=== PATIENT | female | born 1945 | race Caucasian/White ===

== ENCOUNTER 2016-09-17 14:30 | Emergency (ER) | payer OTHER ==
[~2016-09-17 14:30] MED LIST: ALL180 PO; ASPEC81 PO; ATEN-173 PO; CALC500C70 PO; CLX20 PO; HYDC25 PO; KLNUNK PO; LRTUNK; MODA1TAB PO; MULT-506 PO; SIMV10TA2 PO
[2016-09-17 14:38] VITALS: TEMP 36.7
[2016-09-17] MEDS ORDERED: HYDR25TA4 PO (14:54)
[2016-09-17] MEDS ORDERED: FEXO1TAB49 PO (14:54)
[2016-09-17] MEDS ORDERED: ASPI81TA28 PO (14:54)
[2016-09-17] MEDS ORDERED: CITA20TA9 PO (14:54)
[2016-09-17] MEDS ORDERED: CLON0.5T3 PO (14:54)
[2016-09-17] MEDS ORDERED: OPTIRAY 320 IV PRN (15:45)
[2016-09-17 16:28] LABS: BASO % 0.3 %; BASO ABS # 0.02 K/uL (0-0.2); COMPLETE YES; EOS % 2.4 %; HEMATOCRIT 41.1 % (37-47); IG% 0.1 %; LYMPH % 37.2 %; MEAN CELL VOLUME 81.7 fL (80-100); MEAN CORPUSCULAR HEMOGLOBIN 26.8 pg (25-34); MEAN CORPUSCULAR HGB CONC 32.8 g/dl (32-36); MEAN PLATELET VOLUME 8.7 fL (7.4-10.4); MONO % 10.1 %; NEUT % 49.9 %; PLATELET COUNT 194 K/uL (130-400); RED BLOOD COUNT 5.03 M/uL (4.2-5.4); WHITE BLOOD COUNT 6.72 K/uL (4.8-10.8)
[2016-09-17 16:45] LABS: BLOOD UREA NITROGEN 12 mg/dl (7-18); BUN/CREATININE RATIO 20.8 (10-20); CALCIUM 9.8 mg/dl (8.5-10.1); CARBON DIOXIDE 32 mmol/L (21-32); CHLORIDE 101 mmol/L (98-107); CREATININE 0.59 mg/dl (0.60-1.20); GLUCOSE 88 mg/dl (70-99); POTASSIUM 4.2 mmol/L (3.5-5.1); SODIUM 138 mmol/L (136-145)
--- NOTE | 2016-09-17 17:37 | DIAGNOSTIC IMAGING REPORT ---
ORBITS/SELLA/TEMP CT WITH INTRAVENOUS CONTRAST HISTORY: left periorbital edema TECHNIQUE: Multiaxial CT images of the orbits were performed reformatted in the coronal plane following the use of intravenous contrast. COMPARISON STUDY: None. FINDINGS: Mild preseptal soft tissue swelling within the left orbit. No masses or fluid collections. The globes and retrobulbar fat are intact. The extraocular muscles and optic nerves are normal in course and caliber. The visualized brain parenchyma is unremarkable. No fractures within the visualized osseous structures. The paranasal sinuses and mastoid air cells are clear. IMPRESSION: Mild preseptal soft tissue swelling within the left orbit. No masses or abscess. Electronically signed by: Bowen Vallejo M.D. 09/17/2016 5:35 PM Dictated Date/Time: 09/17/2016 5:32 PM
[2016-09-17] MEDS ORDERED: CLINDAMYCIN 150MG HOME PACK PO ONE (17:45)
[2016-09-17] MEDS ORDERED: CLIN300C2 PO (17:46)
--- NOTE | 2016-09-17 17:46 | EMERGENCY ROOM VISIT NOTE ---
History First contact with patient: 15:02 Chief Complaint: EYE ASSESSMENT Stated Complaint: L EYE JUAN DAVID History of Present Illness The patient is a 71 year old female who presents to the Emergency Room with complaints of left eye swelling 3 days. The patient states that she first developed some itching and slight swelling in the left eye 3 days ago. She saw her florist designer and states that they did a full exam and this was normal. She was placed on erythromycin ointment and has been using this and applying Benadryl without relief. She states the swelling increased today. She states the eye is still itchy but is not significantly painful. She denies any difficulty with vision. She reports a history of cataracts but no other significant history. Review of Systems A complete 10 point review of systems was reviewed with the patient with pertinent positives and negatives as per history of present illness. All else were negative. Social History Smoking Status: Never Smoker Current/Historical Medications Scheduled Aspirin (Aspirin Ec), 81 MG PO DAILY Atenolol (Tenormin), 25 MG PO QAM Calcium/Vitamin D (Os-Rajinder 500 Plus D), 1 TAB PO BID Citalopram Hydrobromide (Celexa), 20 MG PO DAILY Clindamycin Hcl (Cleocin), 300 MG PO TID Clonazepam (Klonopin), Unknown Dose PO HS Fexofenadine Hcl (Tala Allergy), 1 TAB PO DAILY Hydrochlorothiazide (Hctz), 25 MG PO DAILY Modafinil (Provigil), 200 MG PO DAILY Multivitamin (Multivitamin), 1 TAB PO DAILY Simvastatin (Zocor), 10 MG PO QPM Allergies Coded Allergies: BEE STING (Verified Allergy, Severe, ANAPHALAXIS, 10/24/10) Adhesives (Verified Allergy, Unknown, 0, 10/24/10) Penicillins (Unverified Allergy, Unknown, HIVES, 05/16/10) Codeine (Unverified Adverse Reaction, Unknown, FAINTING, 05/30/10) Physical Exam Vital Signs Date Time Temp Pulse Resp B/P Pulse Ox O2 Delivery O2 Flow Rate FiO2 09/17/16 17:58 68 20 151/80 97 09/17/16 14:38 36.7 68 20 136/76 96 Room Air Right Eye Acuity: 20/200 Left Eye Acuity: 20/50 Physical Exam VITALS: Vitals are noted on the nurse's note and reviewed by myself. Vital signs stable. GENERAL: This is a 71-year-old female, in no acute distress, nondiaphoretic, well-developed well-nourished. SKIN: There is edema and erythema surrounding the left eye. EARS: External auditory canals clear, tympanic membranes pearly lafleur without erythema or effusion bilaterally. EYES: Pupils equal round and reactive to light and accommodation. Conjunctivae without injection, sclerae without icterus. Extraocular movements intact. No uptake of fluorescein stain on UV light examination. HEART: Regular rate and rhythm without murmurs gallops or rubs. LUNGS: Clear to auscultation bilaterally without wheezes, rales or rhonchi. . NEURO: Patient was alert and oriented to person place and time. Medical Decision & Procedures ER Provider Diagnostic Interpretation: ORBITS/SELLA/TEMP CT WITH INTRAVENOUS CONTRAST HISTORY: left periorbital edema TECHNIQUE: Multiaxial CT images of the orbits were performed reformatted in the coronal plane following the use of intravenous contrast. COMPARISON STUDY: None. FINDINGS: Mild preseptal soft tissue swelling within the left orbit. No masses or fluid collections. The globes and retrobulbar fat are intact. The extraocular muscles and optic nerves are normal in course and caliber. The visualized brain parenchyma is unremarkable. No fractures within the visualized osseous structures. The paranasal sinuses and mastoid air cells are clear. IMPRESSION: Mild preseptal soft tissue swelling within the left orbit. No masses or abscess. Laboratory Results 09/17/16 16:20 Red Blood Count 5.03, Mean Corpuscular Volume 81.7, Mean Corpuscular Hemoglobin 26.8, Mean Corpuscular Hemoglobin Concent 32.8, Mean Platelet Volume 8.7, Neutrophils (%) (Auto) 49.9, Lymphocytes (%) (Auto) 37.2, Monocytes (%) (Auto) 10.1, Eosinophils (%) (Auto) 2.4, Basophils (%) (Auto) 0.3, Neutrophils # (Auto ) 3.35, Lymphocytes # (Auto) 2.50, Monocytes # (Auto) 0.68, Eosinophils # (Auto ) 0.16, Basophils # (Auto) 0.02 09/17/16 16:20 Test 09/17/16 16:20 White Blood Count 6.72 K/uL (4.8-10.8) Red Blood Count 5.03 M/uL (4.2-5.4) Hemoglobin 13.5 g/dL (12.0-16.0) Hematocrit 41.1 % (37-47) Mean Corpuscular Volume 81.7 fL (80-100) Mean Corpuscular Hemoglobin 26.8 pg (25-34) Mean Corpuscular Hemoglobin Concent 32.8 g/dl (32-36) Platelet Count 194 K/uL (130-400) Mean Platelet Volume 8.7 fL (7.4-10.4) Neutrophils (%) (Auto) 49.9 % Lymphocytes (%) (Auto) 37.2 % Monocytes (%) (Auto) 10.1 % Eosinophils (%) (Auto) 2.4 % Basophils (%) (Auto) 0.3 % Neutrophils # (Auto) 3.35 K/uL (1.4-6.5) Lymphocytes # (Auto) 2.50 K/uL (1.2-3.4) Monocytes # (Auto) 0.68 K/uL (0.11-0.59) Eosinophils # (Auto) 0.16 K/uL (0-0.5) Basophils # (Auto) 0.02 K/uL (0-0.2) RDW Standard Deviation 43.0 fL (36.4-46.3) RDW Coefficient of Variation 14.4 % (11.5-14.5) Immature Granulocyte % (Auto) 0.1 % Immature Granulocyte # (Auto) 0.01 K/uL (0.00-0.02) Anion Gap 5.0 mmol/L (3-11) Estimated GFR () 106.1 Estimated GFR (Non- 91.6 BUN/Creatinine Ratio 20.8 (10-20) Calcium Level 9.8 mg/dl (8.5-10.1) Medications Administered Medications (Trade) Dose Ordered Sig/Ramos Route Start Time Stop Time Status Last Admin Dose Admin Clindamycin HCl (Cleocin 150MG Home Pack) 1 homepack UD ONCE PO 09/17/16 17:45 09/17/16 17:46 DC 09/17/16 17:45 1 HOMEPACK Medical Decision Differential diagnosis includes allergic reaction, preseptal cellulitis, orbital cellulitis, herpes zoster, among others. The patient was evaluated as above. CT scan of the orbits was performed and did show preseptal swelling with no evidence of orbital involvement. Slit-lamp examination showed no uptake of fluorescein. The patient will be covered with clindamycin for a preseptal cellulitis. She was instructed to continue follow- up with her florist designer. She will return here for any worsening symptoms. She verbalized understanding of my assessment and treatment plan and was discharged home in good condition. The patient was independently evaluated by Dr. Gould, ED attending physician, who agreed with my assessment and treatment plan. Impression Primary Impression: Preseptal cellulitis of left eye Departure Information Dispostion Home / Self-Care Condition GOOD Prescriptions Clindamycin Hcl (CLEOCIN) 300 Mg Cap 300 MG PO TID for 10 Days, #30 CAP Prov: Tennille Chen ., HELEN 09/17/16 Referrals Zakia Galvez DO (PCP) Patient Instructions My [facility] Additional Instructions You were prescribed clindamycin to be taken as prescribed. This is an antibiotic. All antibiotics have the potential to cause diarrhea. Stop this medication and contact a medical provider if you were to develop any significant adverse side effects including: wheezing, shortness of breath, passing out, vomiting, or a diffuse rash. Always take antibiotics as directed and COMPLETE the ENTIRE course regardless of the improvement of your symptoms. You may want to take a probiotic with this medication as well. You can find these [id number]. Keep your follow-up appointment with the florist designer as scheduled. Return to the emergency room with worsening swelling, vision changes or any other new/concerning symptoms.
--- NOTE | 2016-09-17 17:52 | EMERGENCY ROOM VISIT NOTE ---
ED Visit Note First contact with patient: 15:02 The patient was seen and examined with Tennille Chen PA-C. I agree with the history, physical and findings. Please see the note for disposition and details.
[2016-09-17 17:58] VITALS: BP 151/80; PULSE 68; O2SAT 97
== END 2016-09-17 18:00 | disposition home or self-care (01) ==
LOC: C.EDB 14:32 → C.EDD 18:00
DX: L03.213 Periorbital cellulitis (principal); Z79.82 Long term (current) use of aspirin

== ENCOUNTER 2022-04-26 11:25 | Inpatient (IN) ==
[2022-04-26 14:24] LABS: Basophils # (auto) 0.01 K/uL (0-0.2); Basophils % (auto) 0.1 %; Eosinophils # (auto) 0.04 K/uL (0-0.50); Eosinophils % (auto) 0.6 %; Hematocrit (blood only) 39.6 % (34.1-44.9); Hemoglobin 13.6 g/dl (12.0-16.0); Immature Granulocytes # (auto) 0.02 K/uL (0.00-0.02); Immature Granulocytes % (auto) 0.3 %; Lymphocytes # (auto) 2.86 K/uL (1.2-3.4); Lymphocytes % (auto) 41.3 %; Mean Corpuscular Hemoglobin 26.6 pg (25.0-34.0); Mean Corpuscular Hgb Conc 34.3 g/dL (32.0-36.0); Mean Corpuscular Volume 77.3 fL (80.0-100.0); Mean Platelet Volume 8.6 fL (9.4-12.3); Monocytes # (auto) 0.93 K/uL (0.24-0.82); Monocytes % (auto) 13.4 %; Neutrophils # (auto) 3.06 K/uL (1.4-6.5); Neutrophils % (auto) 44.3 %; Platelet Count 248 K/uL (130-400); RDW Coefficient of Variation 13.5 % (11.5-14.5); RDW Standard Deviation 38.1 fL (36.4-46.3); Red Blood Count 5.12 M/uL (3.93-5.22); White Blood Count 6.92 K/ul (4.8-10.8)
[2022-04-26] MEDS ORDERED: SODIUM CHLORIDE 0.9% 1000ML 1,000 ML IV ONE (14:56)
[2022-04-26] MEDS ORDERED: ONDANSETRON INJ 2 MG/ML 2 ML VIAL IV STA (14:56)
[2022-04-26 14:59] LABS: Albumin Globulin Ratio 1.6 (0.9-2); Albumin Level 4.3 gm/dl (3.4-5.0); BUN Creatinine Ratio 18.3 (10-20); Bilirubin,Total 0.9 mg/dl (0.2-1.0); Creatinine Clr Calc Pharmacy 65.6 ml/min; Est GFR (African American) 94.6 ml/min; Est GFR (Non-African American) 81.6 ml/min; Globulin 2.7 gm/dl (2.5-4.0); Potassium 3.4 mmol/L (3.5-5.1)
--- NOTE | 2022-04-26 15:03 | Emergency Department Note ---
Impression & Plan COVID-19, Weakness, Nausea, Hyponatremia, Colitis ED Provider Note Provider: Ash Lal MD DATE OF SERVICE: 04/26/2022 CHIEF COMPLAINT: Dehydrated, COVID, referred for blood work HISTORY OF PRESENT ILLNESS: Patient is a 77-year-old female history of restless leg syndrome and hypertension presenting here today referred by the outpatient providers for abnormal renal blood work. Evidently was seen here about 10 days ago and tested positive for COVID. Since then has been having significant generalized weakness with nausea vomiting and diarrhea. Denies significant shortness of breath. Just feels very very weak. Limited solid intake and is drinking a bit of water however. Reports some intermittent headache and left ear pain at times. Denies significant chest pain but may be a bit of right- sided abdominal pain. She is unclear exactly how long this may have been there but sometime towards the beginning of the illness course. No history of COVID in the past and she is vaccinated. Patient was started on pack Slo-Bid at the prior encounter here. REVIEW OF SYSTEMS: A total of 10 review of systems was obtained and negative except as stated above in the HPI. PAST MEDICAL HISTORY: As noted above MEDICATIONS: Reviewed home medications SOCIAL HISTORY: Lives at home with PHYSICAL EXAM: GENERAL: alert and oriented in no acute distress on stretcher Head: normocephalic and atraumatic EYES: No injection, discharge or icterus. NECK: Trachea midline. Supple. ENT: Mucous membranes pink and moist. Pharynx without erythema or exudate. Left TM clear without significant purulence or erythema. LUNGS: Airway patent. No retractions. Breath sounds clear with good air entry bilaterally. HEART: Regular rate and rhythm. No chest wall tenderness ABDOMEN: Soft with some right mid upper abdominal tenderness. SKIN: Acyanotic, warm, dry, without rashes EXTREMITIES: Without swelling, tenderness or deformity NEUROLOGICAL: No focal deficits. No aphasia. No facial droop or slurred speech. EK bpm normal sinus rhythm. No PVC or PAC. No acute ST segment elevation with a QTC of 425. CONTINUOUS CARDIAC MONITORING: was ordered and showed a heart rate of 60s-80s bpm in normal sinus rhythm Patient's laboratory studies and imaging reviewed. Differential includes Infection, dehydration, metabolic abnormality, hypo/hyperglycemia, electrolyte disturbance, anemia, hypoxia, cardiac sources, intracerebral event, toxicologic, neurologic, as well as other pathologies. IMPRESSION/MEDICAL DECISION MAKING: Vaccinated but with COVID approximately 10 days in completed pack Slo-Bid. Using Compazine and Phenergan at home but still with significant nausea and vomi ting and limited intake. Feeling washed out. Sent in due to abnormal blood work in the outpatient setting. Repeat blood work here shows no significant anemia or leukocytosis. Not having significant respiratory symptoms. Outpatient blood work significant for sodium of 130 and here is 128. Some h yponatremia and borderline hypokalemia noted but normal creatinine. No evidence of transaminitis. No troponin elevation. Evidently was recommended to possibly have flu testing so her repeat COVID flu RSV test was sent. Given some Zofran IV fluid. Given that she is having a fair amount of tenderness in the right upper abdomen that could just be related to her vomiting did complete a CT scan of the abdomen pelvis. Low-grade colitis noted. Doubt this represents C. difficile. Likely this is related to COVID. Discussed with her and daughter at bedside findings. They are concerned about her weakness and prolonged course of symptoms. In shared decision-making feel that further observation here is not unreasonable request and hospitalist contacted DIAGNOSIS: COVID-19, nausea and vomiting, weakness, hyponatremia, colitis DISPOSITION: Hospitalist will evaluate Patient was agreeable with this plan. Past Med/Surg History Medical History (Updated 04/26/22 @ 19:30 by Carmen Mejia PA-C) Celiac disease DM2 (diabetes mellitus, type 2) Dyslipidemia PREETI (obstructive sleep apnea) Restless leg syndrome Surgical History (Updated 04/26/22 @ 19:14 by Carmen Mejia PA-C) History of breast biopsy History of colonoscopy Family History (Updated 04/26/22 @ 19:15 by Carmen Mejia PA-C) Mother Lung cancer Father Coronary heart disease Sister Multiple sclerosis Social History (Updated 04/26/22 @ 19:15 by Carmen Mejia PA-C) Smoking Status: Never smoker Hx Alcohol Use: Yes Alcohol type: beer Hx Substance Use: No Preferred Language: French Communication Ability: Effective Broker Assistant Required: Yes Beliefs That Will Affect Care: None Current Living Situation: Spouse Feels Safe at Home: Yes Safety Concerns: Feels Safe At This Time Assistive Devices: CPAP, Denture - Upper and Glasses Allergies Allergies Allergy/AdvReac Type Severity Reaction Status Date / Time bee venom protein (honey bee) Allergy Severe ANAPHALAXIS Verified 04/26/22 17:19 Penicillins Allergy Intermediate HIVES Verified 04/26/22 17:19 adhesive Allergy Mild SKIN Verified 04/26/22 17:19 IRRITATION codeine AdvReac Intermediate FAINTING Verified 04/26/22 17:19 Home Meds Home Medications Medication Instructions Recorded Confirmed aspirin 81 mg tablet,delayed 81 mg PO DAILY 04/16/22 04/26/22 release atenolol 25 mg tablet 25 mg PO DAILY 04/16/22 04/26/22 calcium carbonate 500 mg-vitamin 1 tab PO DAILY 04/16/22 04/26/22 D3 15 mcg (600 unit) tablet (Os-Rajinder 500 + D3) epinephrine 0.3 mg/0.3 mL 0.3 mg IM DIRECTED PRN Allergic 04/16/22 04/26/22 injection, auto-injector Reaction lisinopril 20 1 tab PO DAILY 04/16/22 04/26/22 mg-hydrochlorothiazide 25 mg tablet metformin 500 mg tablet,extended 500 mg PO BID 04/16/22 04/26/22 release 24 hr multivitamin 1 tab PO DAILY 04/16/22 04/26/22 ropinirole 1 mg tablet 1 mg PO HS 04/16/22 04/26/22 simvastatin 10 mg tablet 10 mg PO HS 04/16/22 04/26/22 trazodone 100 mg tablet 50 mg PO HS 04/16/22 04/26/22 vit C 250 mg-vit E 90 mg-zinc 40 1 tab PO BID 04/16/22 04/26/22 mg-copper 1 ms-mzjaso-hphxkh capsule (PreserVision AREDS-2) ondansetron HCl 4 mg tablet 4 mg PO UD PRN Nausea 04/26/22 04/26/22 promethazine 25 mg rectal 25 mg LA UD PRN Nausea 04/26/22 04/26/22 suppository Results & Data (ED) Vital Signs Vital Signs - 24 hr 04/26/22 11:58 04/26/22 13:25 04/26/22 15:25 Temperature 35.8 C L Temperature Source Temporal Artery Scan Pulse Rate 74 Pulse Rate [Finger] 68 64 Pulse Rhythm [Finger] Regular Regular Pulse Strength [Finger] Normal Normal Respiratory Rate 17 20 20 Respiratory Effort / Characteristics Non-Labored Non-Labored Respiratory Depth Normal Normal Respiratory Pattern Regular Blood Pressure 128/78 Blood Pressure [Left Arm] 140/88 142/78 H Blood Pressure Mean 94 Blood Pressure Mean [Left Arm] 105 99 Blood Pressure Position [Left Arm] Lying Lying Pulse Oximetry 96 98 98 Oxygen Delivery Method Room Air Room Air Room Air Sepsis Recent Fever Within 48 Hours No Sepsis New/Unexplained Change in Mental Status N/A Sepsis Action Taken by Nursing No Action Required Laboratory Data Result diagrams: 04/26/22 13:40 04/26/22 13:40 Lab Results 04/26/22 04/26/22 04/26/22 Range/Units 13:40 13:40 13:40 WBC 6.92 (4.8-10.8) K/ul RBC 5.12 (3.93-5.22) M/uL Hgb 13.6 (12.0-16.0) g/dl Hct 39.6 (34.1-44.9) % MCV 77.3 L (80.0-100.0) fL MCH 26.6 (25.0-34.0) pg MCHC 34.3 (32.0-36.0) g/dL RDW Std Deviation 38.1 (36.4-46.3) fL RDW Coeff of Js 13.5 (11.5-14.5) % Plt Count 248 (130-400) K/uL MPV 8.6 L (9.4-12.3) fL Immature Gran % (Auto) 0.3 % Neut % (Auto) 44.3 % Lymph % (Auto) 41.3 % Reynolds % (Auto) 13.4 % Eos % (Auto) 0.6 % Baso % (Auto) 0.1 % Neut # (Auto) 3.06 (1.4-6.5) K/uL Lymph # (Auto) 2.86 (1.2-3.4) K/uL Reynolds # (Auto) 0.93 H (0.24-0.82) K/uL Eos # (Auto) 0.04 (0-0.50) K/uL Baso # (Auto) 0.01 (0-0.2) K/uL Immature Gran # (Auto) 0.02 (0.00-0.02) K/uL Sodium 128 L (136-145) mmol/L Potassium 3.4 L (3.5-5.1) mmol/L Chloride 87 L (98-107) mmol/L Carbon Dioxide 35 H (21-32) mmol/L Anion Gap 6 (3-11) BUN 13 (6-23) mg/dl Creatinine 0.71 (0.6-1.2) mg/dl Est Cr Clr Drug Dosing 65.6 ml/min Est GFR ( Amer) 94.6 ml/min Est GFR (Non-Af Amer) 81.6 ml/min BUN/Creatinine Ratio 18.3 (10-20) Glucose 95 (70-99(Fasting)) mg/dl Calcium 10.0 (8.5-10.1) mg/dl Magnesium (1.7-2.4) mg/dl Total Bilirubin 0.9 (0.2-1.0) mg/dl AST 34 (13-39) U/L ALT 47 (7-52) U/L Alkaline Phosphatase 66 (34-104) U/L Total Creatine Kinase (26-192) U/L Troponin I High Sens (0-14) pg/ml Total Protein 7.0 (6.0-8.3) gm/dl Albumin 4.3 (3.4-5.0) gm/dl Globulin 2.7 (2.5-4.0) gm/dl Albumin/Globulin Ratio 1.6 (0.9-2) Lipase (11-82) U/L SARS-CoV-2 (PCR) POSITIVE A* (Negative) Influenza Type A (PCR) Negative (Neg) Influenza Type B (PCR) Negative (Neg) RSV (RT-PCR) Negative (Neg) 04/26/22 04/26/22 Range/Units 13:40 13:40 WBC (4.8-10.8) K/ul RBC (3.93-5.22) M/uL Hgb (12.0-16.0) g/dl Hct (34.1-44.9) % MCV (80.0-100.0) fL MCH (25.0-34.0) pg MCHC (32.0-36.0) g/dL RDW Std Deviation (36.4-46.3) fL RDW Coeff of Js (11.5-14.5) % Plt Count (130-400) K/uL MPV (9.4-12.3) fL Immature Gran % (Auto) % Neut % (Auto) % Lymph % (Auto) % Reynolds % (Auto) % Eos % (Auto) % Baso % (Auto) % Neut # (Auto) (1.4-6.5) K/uL Lymph # (Auto) (1.2-3.4) K/uL Reynolds # (Auto) (0.24-0.82) K/uL Eos # (Auto) (0-0.50) K/uL Baso # (Auto) (0-0.2) K/uL Immature Gran # (Auto) (0.00-0.02) K/uL Sodium (136-145) mmol/L Potassium (3.5-5.1) mmol/L Chloride (98-107) mmol/L Carbon Dioxide (21-32) mmol/L Anion Gap (3-11) BUN (6-23) mg/dl Creatinine (0.6-1.2) mg/dl Est Cr Clr Drug Dosing ml/min Est GFR ( Amer) ml/min Est GFR (Non-Af Amer) ml/min BUN/Creatinine Ratio (10-20) Glucose (70-99(Fasting)) mg/dl Calcium (8.5-10.1) mg/dl Magnesium 1.9 (1.7-2.4) mg/dl Total Bilirubin (0.2-1.0) mg/dl AST (13-39) U/L ALT (7-52) U/L Alkaline Phosphatase (34-104) U/L Total Creatine Kinase 39 (26-192) U/L Troponin I High Sens 5.5 (0-14) pg/ml Total Protein (6.0-8.3) gm/dl Albumin (3.4-5.0) gm/dl Globulin (2.5-4.0) gm/dl Albumin/Globulin Ratio (0.9-2) Lipase 61 (11-82) U/L SARS-CoV-2 (PCR) (Negative) Influenza Type A (PCR) (Neg) Influenza Type B (PCR) (Neg) RSV (RT-PCR) (Neg) Administered Medications Enoxaparin Sodium (Enoxaparin Inj 40 Mg/0.4 Ml Syr) 40 mg SQ Q24H LULÚ Stop: 05/26/22 20:23 Last Admin: 04/26/22 20:54 Dose: 40 mg Documented By: YON Potassium Chloride/Sodium Chloride (Normal Saline W/20 Meq Kcl) 20 meq in 1,000 mls @ 80 mls/hr IV .[id number] LULÚ; Protocol Stop: 04/27/22 08:53 Last Admin: 04/26/22 20:55 Dose: 80 mls/hr Documented By: YON Simvastatin (Simvastatin 10 Mg Tab) 10 mg PO HS LULÚ Stop: 05/26/22 20:59 Last Admin: 04/26/22 20:55 Dose: 10 mg Documented By: YON Trazodone HCl (Trazodone Hcl 50 Mg Tab) 50 mg PO HS LULÚ Stop: 05/26/22 20:59 Last Admin: 04/26/22 20:55 Dose: 50 mg Documented By: YON Discontinued Medications Sodium Chloride (Nss 1000ml) 1,000 mls @ 999 mls/hr IV .[id number] ONE Stop: 04/26/22 15:56 Last Infusion: 04/26/22 20:26 Dose: 0 mls/hr Documented By: Admin: 04/26/22 15:18 Dose: 999 mls/hr Documented By: HECTOR Ioversol (Optiray 350 100ml) 79 ml IV ONCE ONE Stop: 04/26/22 15:29 Last Admin: 04/26/22 15:28 Dose: 79 ml Documented By: YELITZA Ondansetron HCl (Ondansetron Inj 2 Mg/Ml 2 Ml Vial) 4 mg IV NOW STA Stop: 04/26/22 14:57 Last Admin: 04/26/22 15:18 Dose: 4 mg Documented By: HECTOR Potassium Chloride (Potassium Chloride Crtab 20 Meq Tabcr) 20 meq PO NOW STA Stop: 04/26/22 20:42 Last Admin: 04/26/22 21:04 Dose: 20 meq Documented By: YON Imaging Data Radiologist's Impression: Abdomen/Pelvis CT 04/26/22 15:[address] WITH IV CONTRAST CT DOSE: 463.29 mGy.cm HISTORY: n/v/d, R abd pain, covid TECHNIQUE: Multiaxial CT images of the abdomen and pelvis were performed following the use of intravenous contrast. A dose lowering technique was utilized adhering to the principles of ALARA. COMPARISON STUDY: None. FINDINGS: The lung bases are clear. No pneumoperitoneum. No pneumatosis. No fractures within the visualized osseous structures. Cholecystectomy. There are few subcentimeter hypodense lesions within the liver. These are technically too small to characterize but statistically represent cysts. The main portal vein is patent. Multiple punctate calcified granulomas noted within the liver and spleen. The pancreas, adrenal glands, and kidneys are unremarkable. No hydronephrosis. The main portal vein is patent. No retroperitoneal lymphadenopathy. Mild calcified plaque within the normal caliber abdominal aorta. The bladder is not well-distended. The uterus and left ovary are unremarkable. There is a 1.5 cm right ovarian cyst. Colonic diverticulosis. No evidence for acute diverticulitis. No evidence for bowel obstruction. Normal appendix. Questionable mild thickening of the majority of the colon most pronounced within the ascending colon. This suggests a low-grade colitis. IMPRESSION: 1. Probable low-grade colitis. 2. Normal appendix. 3. No evidence for bowel obstruction. ACT 112: Negative or not required by law. Electronically signed by: Bowen Vallejo M.D. 04/26/2022 3:47 PM Discharge Plan Visit Data Chief Complaint: Dehydration Stated Complaint: REFERRED BY DOCTOR, DEHYDRATION ED Provider: Ash Lal Discharge Problem: COVID-19, Weakness, Nausea, Hyponatremia, Colitis Discharge Instructions Interventions: ED Discharge Assessment Last Done: 04/26/22 20:23
[2022-04-26 15:23] LABS: Influenza A virus by PCR Negative (Neg); Influenza B virus by PCR Negative (Neg); RSV by PCR Negative (Neg)
[2022-04-26] MEDS ORDERED: OPTIRAY 350 100ml IV ONE (15:28)
--- NOTE | 2022-04-26 15:48 | CT Scan Report ---
ABDOMEN AND PELVIS CT WITH IV CONTRAST CT DOSE: 463.29 mGy.cm HISTORY: n/v/d, R abd pain, covid TECHNIQUE: Multiaxial CT images of the abdomen and pelvis were performed following the use of intrave nous contrast. A dose lowering technique was utilized adhering to the principles of ALARA. COMPARISON STUDY: None. FINDINGS: The lung bases are clear. No pneumoperitoneum. No pneumatosis. No fractures within the visu alized osseous structures. Cholecystectomy. There are few subcentimeter hypodense lesions within the liver. These are technically too small to characterize but statistically represent cysts. The main po rtal vein is patent. Multiple punctate calcified granulomas noted within the liver and spleen. The pa ncreas, adrenal glands, and kidneys are unremarkable. No hydronephrosis. The main portal vein is rodriguez nt. No retroperitoneal lymphadenopathy. Mild calcified plaque within the normal caliber abdominal aor ta. The bladder is not well-distended. The uterus and left ovary are unremarkable. There is a 1.5 cm right ovarian cyst. Colonic diverticulosis. No evidence for acute diverticulitis. No evidence for bow el obstruction. Normal appendix. Questionable mild thickening of the majority of the colon most prono unced within the ascending colon. This suggests a low-grade colitis. IMPRESSION: 1. Probable low-grade colitis. 2. Normal appendix. 3. No evidence for bowel obstruction. ACT 112: Negative or not required by law. Electronically signed by: Bowen Vallejo M.D. 04/26/2022 3:47 PM
[2022-04-26 16:03] LABS: SARS CoV2 RNA(COVID-19) Ceph POSITIVE (Negative)
[2022-04-26 16:37] LABS: Troponin I High Sensitivity 5.5 pg/ml (0-14)
--- NOTE | 2022-04-26 17:14 | History & Physical Report ---
Date of Service April 26, 2022 Assessment & Plan (1) COVID-19: (2) Weakness: (3) Fatigue: (4) Colitis: (5) Hyponatremia: (6) Nausea: Plan COVID-19: Weakness: Fatigue: Initial diagnosis 04/16/2022: Completed Paxlovisophie Is vaccinated with 2 boosters against COVID No leukocytosis, no hypoxia Hyponatremia: Sodium 130 outpatient in ED 128 Colitis: Abdominal/pelvic CT: No SBO, some colitis Nausea: Responding well to IV Zofran Disposition: PCP: CODE STATUS: VTE prophylaxis: I personally was able to review all current laboratory work and diagnostic images obtained in the ED. Additionally, I was able to review the patients past medication reconciliation and history with direct visualization in the patients chart. History of Present Illness Chief Complaint: Weakness Primary Care Provider: Zakia Galvez DO Allergies Allergy/AdvReac Type Severity Reaction Status Date / Time bee venom protein (honey bee) Allergy Severe ANAPHALAXIS Verified 04/16/22 17:41 Penicillins Allergy Intermediate HIVES Verified 04/16/22 17:41 adhesive Allergy Mild SKIN Verified 04/16/22 17:41 IRRITATION codeine AdvReac Intermediate FAINTING Verified 04/16/22 17:41 Home Medications Medication Instructions Recorded Confirmed Type aspirin 81 mg tablet,delayed 81 mg PO DAILY 04/16/22 04/16/22 History release atenolol 25 mg tablet 25 mg PO DAILY 04/16/22 04/16/22 History calcium carbonate 500 mg-vitamin 1 tab PO DAILY 04/16/22 04/16/22 History D3 15 mcg (600 unit) tablet (Os-Rajinder 500 + D3) epinephrine 0.3 mg/0.3 mL 0.3 mg IM DIRECTED PRN Allergic 04/16/22 04/16/22 History injection, auto-injector Reaction lisinopril 20 1 tab PO DAILY 04/16/22 04/16/22 History mg-hydrochlorothiazide 25 mg tablet metformin 500 mg tablet,extended 500 mg PO BID 04/16/22 04/16/22 History release 24 hr multivitamin 1 tab PO DAILY 04/16/22 04/16/22 History nirmatrelvir 300 mg (150 mg See Rx Instructions PO .COMPLEX 04/16/22 Rx x2)-ritonavir 100 mg tablet,dose #30 ea pack(EUA) (Paxlovid) ropinirole 1 mg tablet 1 mg PO HS 04/16/22 04/16/22 History simvastatin 10 mg tablet 10 mg PO HS 04/16/22 04/16/22 History trazodone 100 mg tablet 50 mg PO HS 04/16/22 04/16/22 History vit C 250 mg-vit E 90 mg-zinc 40 1 tab PO BID 04/16/22 04/16/22 History mg-copper 1 [id number] capsule (PreserVision AREDS-2) Past Med/Surg History Medical History DM2 (diabetes mellitus, type 2) H/O: HTN (hypertension) HLD (hyperlipidemia) Restless leg syndrome Surgical History No pertinent past surgical history Social History Smoking Status: Never smoker Preferred Language: Mongolian Feels Safe at Home: Yes Review of Systems Review of Systems: Neuro: (-) Falls, trauma, slurred speech HEENT: (-) TRAYL[place], dizziness, dysphagia, visual or auditory changes CV: (-) CP, palpitations, swelling Resp: (-) SOB GI: (-) appetite changes, N/V/D, bowel changes : (-) urinary changes Skin: (-) rashes Psych: (-) anxiety, depression Physical Exam Physical Exam: Neuro: AAOx4, PERRLA, no aphagia, memory changes, CNII-XII grossly intact HEENT: head normocephalic, moist mucus membranes CV: S1/S2, (-) M/G/R, (-) edema, cap refill < 3 seconds Resp: Lungs CTA in all rico. On RA GI: Abdomen S/NT/ND, Ax4 bowel sounds, (-) CVA tenderness Musculoskeletal: 5/5 B/L UE strength, 5/5 B/L LE strength. No gait disturbance Skin: (-) rashes , (-) erythema. Psych: euthymic mood Results & Data Results & Data ([place]) Vital Signs (Past 12 Hours) Vital Signs Temp Pulse Pulse Resp BP BP Pulse Ox 04/26/22 15:25 64 20 142/78 H 98 04/26/22 13:25 68 20 140/88 98 04/26/22 11:58 35.8 C L 74 17 128/78 96 O2 Del Method 04/26/22 15:25 Room Air 04/26/22 13:25 Room Air 04/26/22 11:58 Room Air Laboratory Results Short CBC 04/26/22 Range/Units 13:40 WBC 6.92 (4.8-10.8) K/ul Hgb 13.6 (12.0-16.0) g/dl Hct 39.6 (34.1-44.9) % Plt Count 248 (130-400) K/uL BMP 04/26/22 13:40 Sodium 128 L Potassium 3.4 L Chloride 87 L Carbon Dioxide 35 H BUN 13 Creatinine 0.71 Glucose 95 Calcium 10.0 Cardiac Enzymes 04/26/22 Range/Units 13:40 Total Creatine Kinase 39 (26-192) U/L Liver Function 04/26/22 Range/Units 13:40 Total Bilirubin 0.9 (0.2-1.0) mg/dl AST 34 (13-39) U/L ALT 47 (7-52) U/L Alkaline Phosphatase 66 (34-104) U/L Albumin 4.3 (3.4-5.0) gm/dl Diagnostic Findings Abdomen/Pelvis CT 04/26/22 15:[address] WITH IV CONTRAST CT DOSE: 463.29 mGy.cm HISTORY: n/v/d, R abd pain, covid TECHNIQUE: Multiaxial CT images of the abdomen and pelvis were performed following the use of intravenous contrast. A dose lowering technique was utilized adhering to the principles of ALARA. COMPARISON STUDY: None. FINDINGS: The lung bases are clear. No pneumoperitoneum. No pneumatosis. No fractures within the visualized osseous structures. Cholecystectomy. There are few subcentimeter hypodense lesions within the liver. These are technically too small to characterize but statistically represent cysts. The main portal vein is patent. Multiple punctate calcified granulomas noted within the liver and spleen. The pancreas, adrenal glands, and kidneys are unremarkable. No hydronephrosis. The main portal vein is patent. No retroperitoneal lymphadenopathy. Mild calcified plaque within the normal caliber abdominal aorta. The bladder is not well-distended. The uterus and left ovary are unremarkable. There is a 1.5 cm right ovarian cyst. Colonic diverticulosis. No evidence for acute diverticulitis. No evidence for bowel obstruction. Normal appendix. Questionable mild thickening of the majority of the colon most pronounced within the ascending colon. This suggests a low-grade colitis. IMPRESSION: 1. Probable low-grade colitis. 2. Normal appendix. 3. No evidence for bowel obstruction. ACT 112: Negative or not required by law. Electronically signed by: Bowen Vallejo M.D. 04/26/2022 3:47 PM Code Status & VTE Plan VTE Prophylaxis Plan VTE Prophylaxis will be ordered: Yes
--- NOTE | 2022-04-26 18:09 | History & Physical Report ---
Date of Service April 26, 2022 Assessment & Plan (1) Weakness: Plan: Patient is 77-year-old female with PMH HTN, dyslipidemia, prediabetes, PREETI, depression, celiac disease presented to ER with complaint of generalized weakness x 1.5 weeks. [facility] ER on 04/16/2022 for weakness, headache, N/V/D and + nausea, COVID-19, CXR: no infiltrate, not hypoxic and was discharged home on Paxlovid. Today in ER vitals stable Generalized weakness likely secondary to underlying COVID, dehydration, hyponatremia Fall precautions PT/OT eval (2) COVID-19: Plan: Positive COVID-19 test on 04/16/2022. Symptom onset 04/15/2022. Treated with Paxlovid No hypoxia CXR: No infiltrate Today's COVID-19 PCR still positive, negative influenza and RSV PCR (3) Nausea vomiting and diarrhea: (4) Colitis: Plan: N/V/D possible secondary to COVID-19, possible aggravation with side effects of Paxlovid. ?Colitis related to underlying COVID-19 versus C. difficile versus other CT ABD/PELVIS: Probable low-grade colitis. Normal appendix. No evidence for bowel obstruction. In ER given 1 mL NSS, Zofran Stool culture, C. difficile studies if recurrent diarrhea Zofran as needed nausea Gentle IVF Clear liquid Will hold on antibiotics and reassess (5) Hyponatremia: Plan: Na: 128 Likely secondary to GI losses, poor oral intake In ER given 1L NSS (6) Hypokalemia: Plan: K: 3.4 Replace and monitor (7) HTN (hypertension): Plan: Hold lisinopril/HCTZ Continue atenolol (8) DM2 (diabetes mellitus, type 2): Plan: A1c: 6.2 on 07/07/2021 Hold metformin NovoLog sliding scale per protocol A1c in a.m. (9) Dyslipidemia: Plan: Continue simvastatin (10) Restless leg syndrome: Plan: Continue ropinirole (11) PREETI (obstructive sleep apnea): Plan: CPAP HS (12) Celiac disease: Plan: Gluten free diet DVT Prophylaxis Lovenox SQ DNR/DNI as per discussion with pt Follows with Dr Galvez for routine care Pt was seen and care coordinated with Dr Ramos. See addendum History of Present Illness Chief Complaint: Weakness Primary Care Provider: Zakia Galvez DO Patient is 77-year-old female with PMH HTN, dyslipidemia, prediabetes, PREETI, depression, celiac disease presented to ER with complaint of generalized weakness x 1.5 weeks. Was seen at [facility] ER on 04/16/2022 for weakness, headache nausea, vomiting, diarrhea x1 day and had Positive COVID-19 test. Chest x-ray was without acute process, no hypoxia and was discharged home on Paxlovid. Headache resolved. Patient states was having nausea and multiple episodes of vomiting daily. Been taking phenergen suppositories and zofran. Reports 1-2 episodes of emesis yesterday. Patient states none today and did not have to take antiemetics. Initially was having numerous episodes of loose diarrhea daily. Yesterday had 3-4 episodes diarrhea. Today 2 episodes of hard marbles. Trying to drink Pedialyte, however states has not been eating and has not been drinking very much fluids. No abdominal pain until abdomen exam today in ER. She is still feeling very "wiped out" and has generalized weakness. Denies any falls. Patient denies shortness of breath, cough, congestion, rhinorrhea, sore throat. Denies fever, chills, diaphoresis, hematemesis, hematochezia, melena dizziness, syncope, vision changes, neck pain, CP, palpitations, choking, otalgia, paresthesias, extremity edema, rashes, urinary symptoms. Reports had 2 COVID-19 vaccines and 1 booster, last was in 03/2021. Allergies Allergy/AdvReac Type Severity Reaction Status Date / Time bee venom protein (honey bee) Allergy Severe ANAPHALAXIS Verified 04/26/22 17:19 Penicillins Allergy Intermediate HIVES Verified 04/26/22 17:19 adhesive Allergy Mild SKIN Verified 04/26/22 17:19 IRRITATION codeine AdvReac Intermediate FAINTING Verified 04/26/22 17:19 Home Medications Medication Instructions Recorded Confirmed Type aspirin 81 mg tablet,delayed 81 mg PO DAILY 04/16/22 04/26/22 History release atenolol 25 mg tablet 25 mg PO DAILY 04/16/22 04/26/22 History calcium carbonate 500 mg-vitamin 1 tab PO DAILY 04/16/22 04/26/22 History D3 15 mcg (600 unit) tablet (Os-Rajinder 500 + D3) epinephrine 0.3 mg/0.3 mL 0.3 mg IM DIRECTED PRN Allergic 04/16/22 04/26/22 History injection, auto-injector Reaction lisinopril 20 1 tab PO DAILY 04/16/22 04/26/22 History mg-hydrochlorothiazide 25 mg tablet metformin 500 mg tablet,extended 500 mg PO BID 04/16/22 04/26/22 History release 24 hr multivitamin 1 tab PO DAILY 04/16/22 04/26/22 History ropinirole 1 mg tablet 1 mg PO HS 04/16/22 04/26/22 History simvastatin 10 mg tablet 10 mg PO HS 04/16/22 04/26/22 History trazodone 100 mg tablet 50 mg PO HS 04/16/22 04/26/22 History vit C 250 mg-vit E 90 mg-zinc 40 1 tab PO BID 04/16/22 04/26/22 History mg-copper 1 dn-favkbl-[id number] capsule (PreserVision AREDS-2) ondansetron HCl 4 mg tablet 4 mg PO UD PRN Nausea 04/26/22 04/26/22 History promethazine 25 mg rectal 25 mg MT UD PRN Nausea 04/26/22 04/26/22 History suppository Past Med/Surg History Medical History (Updated 04/26/22 @ 19:30 by Carmen Mejia PA-C) Celiac disease DM2 (diabetes mellitus, type 2) Dyslipidemia PREETI (obstructive sleep apnea) Restless leg syndrome Surgical History (Updated 04/26/22 @ 19:14 by Carmen Mejia PA-C) History of breast biopsy History of colonoscopy Family History (Updated 04/26/22 @ 19:15 by Carmen Mejia PA-C) Mother Lung cancer Father Coronary heart disease Sister Multiple sclerosis Social History (Updated 04/26/22 @ 19:15 by Carmen Mejia PA-C) Smoking Status: Never smoker Hx Alcohol Use: No Hx Substance Use: No Preferred Language: Sinhala Feels Safe at Home: Yes Review of Systems Review of Systems: All systems reviewed & are unremarkable except as noted in HPI & below Physical Exam Physical Exam: General: no acute distress, WDWN Head: normocephalic, atraumatic Eyes: conjunctiva non-injected, anicteric ENT: normal inspection external ears, nose, mucous membranes dry Neck: supple, trachea midline Lungs: clear, no respiratory distress, no wheezing/rhonchi/rales CV: RRR, no murmur, no pretibial edema Abd: normal BS, soft, slight tenderness to palpation RLQ Ext: no cyanosis, no calf tenderness Neuro: A&O x 3, no focal deficits noted, normal affect Skin: warm, dry Results & Data Results & Data ([facility]) Vital Signs (Past 12 Hours) Vital Signs Temp Pulse Pulse Resp BP BP Pulse Ox 04/26/22 15:25 64 20 142/78 H 98 04/26/22 13:25 68 20 140/88 98 04/26/22 11:58 35.8 C L 74 17 128/78 96 O2 Del Method 04/26/22 15:25 Room Air 04/26/22 13:25 Room Air 04/26/22 11:58 Room Air Laboratory Results Short CBC 04/26/22 Range/Units 13:40 WBC 6.92 (4.8-10.8) K/ul Hgb 13.6 (12.0-16.0) g/dl Hct 39.6 (34.1-44.9) % Plt Count 248 (130-400) K/uL BMP 04/26/22 13:40 Sodium 128 L Potassium 3.4 L Chloride 87 L Carbon Dioxide 35 H BUN 13 Creatinine 0.71 Glucose 95 Calcium 10.0 Cardiac Enzymes 04/26/22 Range/Units 13:40 Total Creatine Kinase 39 (26-192) U/L Liver Function 04/26/22 Range/Units 13:40 Total Bilirubin 0.9 (0.2-1.0) mg/dl AST 34 (13-39) U/L ALT 47 (7-52) U/L Alkaline Phosphatase 66 (34-104) U/L Albumin 4.3 (3.4-5.0) gm/dl Diagnostic Findings Abdomen/Pelvis CT 04/26/22 15:[address] WITH IV CONTRAST CT DOSE: 463.29 mGy.cm HISTORY: n/v/d, R abd pain, covid TECHNIQUE: Multiaxial CT images of the abdomen and pelvis were performed following the use of intravenous contrast. A dose lowering technique was utilized adhering to the principles of ALARA. COMPARISON STUDY: None. FINDINGS: The lung bases are clear. No pneumoperitoneum. No pneumatosis. No fractures within the visualized osseous structures. Cholecystectomy. There are few subcentimeter hypodense lesions within the liver. These are technically too small to characterize but statistically represent cysts. The main portal vein is patent. Multiple punctate calcified granulomas noted within the liver and spleen. The pancreas, adrenal glands, and kidneys are unremarkable. No hydronephrosis. The main portal vein is patent. No retroperitoneal lymphadenopathy. Mild calcified plaque within the normal caliber abdominal aorta. The bladder is not well-distended. The uterus and left ovary are unremarkable. There is a 1.5 cm right ovarian cyst. Colonic diverticulosis. No evidence for acute diverticulitis. No evidence for bowel obstruction. Normal appendix. Questionable mild thickening of the majority of the colon most pronounced within the ascending colon. This suggests a low-grade colitis. IMPRESSION: 1. Probable low-grade colitis. 2. Normal appendix. 3. No evidence for bowel obstruction. ACT 112: Negative or not required by law. Electronically signed by: Bowen Vallejo M.D. 04/26/2022 3:47 PM Supervising Physician Co-Signing Physician Notes ATTENDING ADDENDUM: I have seen and examined the patient and have discussed the case with the provider above. I agree with the assessment and plan as stated. Patient is a 77-year-old female who presents with generalized weakness, nausea, vomiting and diarrhea for the past several days. She is COVID-positive and reports feeling rundown over the last 3 weeks. She has not been eating much and denies taking her lisinopril hydrochlorothiazide today or any of her medicines. She is also diabetic on metformin. She lives at home with her and is typically ambulatory and independent. She denies any respiratory symptoms, fevers or chills. Physical exam reveals a well-nourished well-developed older female in no acute distress. She does not demonstrate any increased work of breathing. Cardiac exam reveals S1/S2 heard with no evidence of murmurs rubs or gallops. She appears euvolemic to dry. Abdominal exam reveals a soft nondistended abdomen with tenderness in the right lower quadrant. Lungs are clear to auscultation bilaterally. She is generally weak but has no gross focal neurologic or muscular deficits. Her skin is warm and dry. Work-up in the ER reveals a normal CBC and a BMP revealing a sodium of 128, potassium 3.4. Chloride is 87 and carbon dioxide is 35. Renal function is within normal limits. Magnesium is pending. These lab tests are consistent with clinical dehydration. She was given 1 L of normal saline in the ER and a repeat BMP is pending. Imaging revealed abdominal pelvis CT with IV contrast showing a low-grade colitis on the ascending colon. Overall this is a 77-year-old female who is COVID-positive presenting with an acute gastroenteritis picture. It is unclear if this is of infectious etiology and stool culture is pending. She also may be having some adverse reaction to Paxlovid which was given as a response to her recent COVID positive status. Ischemic colitis is also a possibility given the ongoing dehydration from persistent vomiting and diarrhea. She is on diuretic therapy which will be held. We will consult GI for additional thoughts and continue with supportive care efforts. Continue additional care as outlined above on H&P. DO Richard.
[2022-04-26] MEDS ORDERED: rOPINIRole HCL 1 MG TABLET PO ONE (18:52)
[2022-04-26] MEDS ORDERED: CARBOHYDRATES FOR HYPOGLYCEMIA PO PRN (20:24)
[2022-04-26] MEDS ORDERED: ONDANSETRON INJ 2 MG/ML 2 ML VIAL IV PRN (20:24)
[2022-04-26] MEDS ORDERED: DEXTROSE 50% 50 ML SYRINGE IV PRN (20:24)
[2022-04-26] MEDS ORDERED: GLUCOSE 10 TAB/TUBE PO PRN (20:24)
[2022-04-26] MEDS ORDERED: ACETAMINOPHEN 325 MG TAB PO PRN (20:24)
[2022-04-26] MEDS ORDERED: NSS + 20MEQ KCL 20 MEQ/1,000 ML BAG IV SCH (20:24)
[2022-04-26] MEDS ORDERED: GLUCAGON FOR INJ 1 MG VIAL SQ PRN (20:24)
[2022-04-26] MEDS ORDERED: GLUCOSE 40% GEL 15 GM TUBE PO PRN (20:24)
--- NOTE | 2022-04-26 20:29 | Communication Note ---
Date of Service: April 26, 2022 ATTENDING ADDENDUM: Patient is a 77-year-old female who presents with generalized weakness, nausea, vomiting and diarrhea for the past several days. She is COVID-positive and reports feeling rundown over the last 3 weeks. She has not been eating much and denies taking her lisinopril hydrochlorothiazide today or any of her medicines. She is also diabetic on metformin. She lives at home with her and is typically ambulatory and independent. She denies any respiratory symptoms, fevers or chills. Physical exam reveals a well-nourished well-developed older female in no acute distress. She does not demonstrate any increased work of breathing. Cardiac exam reveals S1/S2 heard with no evidence of murmurs rubs or gallops. She appears euvolemic to dry. Abdominal exam reveals a soft nondistended abdomen with tenderness in the right lower quadrant. Lungs are clear to auscultation bilaterally. She is generally weak but has no gross focal neurologic or muscular deficits. Her skin is warm and dry. Work-up in the ER reveals a normal CBC and a BMP revealing a sodium of 128, potassium 3.4. Chloride is 87 and carbon dioxide is 35. Renal function is within normal limits. Magnesium is pending. These lab tests are consistent with clinical dehydration. She was given 1 L of normal saline in the ER and a repeat BMP is pending. Imaging revealed abdominal pelvis CT with IV contrast showing a low-grade colitis on the ascending colon. Overall this is a 77-year-old female who is COVID-positive presenting with an acute gastroenteritis picture. It is unclear if this is of infectious etiology and stool culture is pending. She also may be having some adverse reaction to Paxlovid which was given as a response to her recent COVID positive status. Ischemic colitis is also a possibility given the ongoing dehydration from persistent vomiting and diarrhea. She is on diuretic therapy which will be held. We will consult GI for additional thoughts and continue with supportive care efforts. Continue additional care as outlined above on H&P. DO Richard.
[2022-04-26] MEDS ORDERED: POTASSIUM CHLORIDE CRTAB 20 MEQ TABCR PO STA (20:41)
[2022-04-26] MEDS: ENOXAPARIN INJ 40 MG/0.4 ML SYR SQ SCH (20:54)
[2022-04-26] MEDS: traZODone HCL 50 MG TAB PO SCH (20:55)
[2022-04-26] MEDS: SIMVASTATIN 10 MG TAB PO SCH (20:55)
[2022-04-26] MEDS ORDERED: INFLUENZA VACCINE HIGH DOSE PF 65+ 0.7 ML SYR IM ONE (21:25)
[2022-04-26 21:58] LABS: Appearance Urine Clear (Clear); Bilirubin Urine Negative (Negative); Blood Urine Negative (Negative); Color Urine Yellow; Glucose Urine UA Negative (Negative); Ketones Urine 1+ (Negative); Leukocyte Esterase Urine Negative (Negative); Nitrite Urine Negative (Negative); Protein Urine Negative (Negative); Specific Gravity Urine 1.022 (1.000-1.030); Urobilinogen Urine Negative (Negative)
[2022-04-26 22:11] LABS: BUN Creatinine Ratio 16.9 (10-20); Calcium 9.3 mg/dl (8.5-10.1); Creatinine Clr Calc Pharmacy 78.9 ml/min; Est GFR (African American) 101.7 ml/min; Est GFR (Non-African American) 87.8 ml/min; Potassium 3.3 mmol/L (3.5-5.1)
[2022-04-26] MEDS: INSULIN ASPART PER UNIT SC SCH (22:22)
[2022-04-26 23:03] LABS: Adenovirus F 40/41 PCR Not Detected (NotDetected); Astrovirus PCR Not Detected (NotDetected); Campylobacter PCR Not Detected (NotDetected); Cryptosporidium PCR Not Detected (NotDetected); Cyclospora cayetanensis PCR Not Detected (NotDetected); Entamoeba histolytica PCR Not Detected (NotDetected); Enteroaggregative E.coli(EAEC) Not Detected (NotDetected); Enteropathogenic E.coli (EPEC) Not Detected (NotDetected); Enterotoxigenic E.coli (ETEC) Not Detected (NotDetected); Giardia lamblia PCR Not Detected (NotDetected); Norovirus GI/GII PCR Not Detected (NotDetected); Plesiomonas shigelloides PCR Not Detected (NotDetected); Rotavirus A PCR Not Detected (NotDetected); Salmonella PCR Not Detected (NotDetected); Sapovirus PCR Not Detected (NotDetected); Shiga-like Toxin E.coli (STEC) Not Detected (NotDetected); Shigella/Enteroinvasive E.coli Not Detected (NotDetected); Vibrio cholerae PCR Not Detected (NotDetected); Vibrio species PCR Not Detected (NotDetected); Yersinia enterocolitica PCR Not Detected (NotDetected)
--- NOTE | 2022-04-27 05:57 | Electrocardiogram Report ---
Test Reason : Blood Pressure : / mmHG Vent. Rate : 070 BPM Atrial Rate : 070 BPM P-R Int : 206 ms QRS Dur : 084 ms QT Int : 394 ms P-R-T Axes : 076 -05 022 degrees QTc Int : 425 ms Normal sinus rhythm Minimal voltage criteria for LVH, may be normal variant Nonspecific T wave abnormality Abnormal ECG When compared with ECG of 16-APR-2022 15:33, No significant change was found Confirmed by Juan Zuniga ([id number]) on 04/27/2022 5:56:56 AM Referred By: SELF Confirmed By:Juan Zuniga
[2022-04-27 07:12] LABS: Hematocrit (blood only) 35.7 % (34.1-44.9); Hemoglobin 12.4 g/dl (12.0-16.0); Mean Corpuscular Hemoglobin 26.9 pg (25.0-34.0); Mean Corpuscular Hgb Conc 34.7 g/dL (32.0-36.0); Mean Corpuscular Volume 77.4 fL (80.0-100.0); Mean Platelet Volume 8.5 fL (9.4-12.3); Platelet Count 189 K/uL (130-400); RDW Coefficient of Variation 13.6 % (11.5-14.5); RDW Standard Deviation 38.5 fL (36.4-46.3); Red Blood Count 4.61 M/uL (3.93-5.22); White Blood Count 4.87 K/ul (4.8-10.8)
[2022-04-27 07:32] LABS: BUN Creatinine Ratio 15.5 (10-20); Calcium 9.1 mg/dl (8.5-10.1); Creatinine Clr Calc Pharmacy 80.3 ml/min; Est GFR (African American) 102.3 ml/min; Est GFR (Non-African American) 88.3 ml/min; Potassium 3.5 mmol/L (3.5-5.1)
[2022-04-27] MEDS: ATENOLOL 25 MG TABLET PO SCH (08:25)
[2022-04-27] MEDS: ASPIRIN 81 MG ECTAB PO SCH (08:25)
[2022-04-27] MEDS: INSULIN ASPART PER UNIT SC SCH ×4 (08:26→21:55)
[2022-04-27 08:44] LABS: Estimated Average Glucose 117 mg/dl; Hemoglobin A1C 5.7 % (4.5-5.6)
--- NOTE | 2022-04-27 10:56 | Hospitalist Progress Note ---
Date of Service April 27, 2022 Assessment & Plan (1) Weakness: Plan: Patient is 77-year-old female with PMH HTN, dyslipidemia, prediabetes, PREETI, depression, celiac disease presented to ER with complaint of generalized weakness x 1.5 weeks. [facility] ER on 04/16/2022 for weakness, headache, N/V/D and + nausea, COVID-19, CXR: no infiltrate, not hypoxic and was discharged home on Paxlovid. Vitals stable, no leukocytosis, sodium improved to 133, stool cx negative Generalized weakness likely secondary to underlying COVID, dehydration, hyponatremia -improving Fall precautions PT/OT eval (2) COVID-19: Plan: Positive COVID-19 test on 04/16/2022. Symptom onset 04/15/2022. Treated with Paxlovid No hypoxia or SOB CXR: No infiltrate Today's COVID-19 PCR still positive, negative influenza and RSV PCR (3) Nausea vomiting and diarrhea: (4) Colitis: Plan: N/V/D possible secondary to COVID-19, possible aggravation with side effects of Paxlovid. ?Colitis related to underlying COVID-19 CT ABD/PELVIS: Probable low-grade colitis. Normal appendix. No evidence for bowel obstruction Stool culture, C. difficile studies negative Zofran as needed nausea Clear liquids for now Will hold on antibiotics and reassess GI to evaluate (5) Hyponatremia: Plan: Na: 128 -> 131 Likely secondary to GI losses, poor oral intake In ER given 1L NSS (6) Hypokalemia: Plan: K: 3.4. Replaced. Continue to monitor on daily BMP (7) HTN (hypertension): Plan: Hold lisinopril/HCTZ Continue atenolol (8) DM2 (diabetes mellitus, type 2): Plan: A1c: 6.2 on 07/07/2021 Hold metformin NovoLog sliding scale per protocol A1c in a.m. (9) Dyslipidemia: Plan: Continue simvastatin (10) Restless leg syndrome: Plan: Continue ropinirole (11) PREETI (obstructive sleep apnea): Plan: CPAP HS (12) Celiac disease: Plan: Gluten free diet DVT Prophylaxis Lovenox SQ DNR/DNI as per discussion with pt Follows with Dr Galvez for routine care Admission and Anticipated Discharge Date Admission Date: April 26, 2022 Supervising Physician Co-Signing Physician Notes Patient seen and examined Reports nausea and vomiting are resolved. Still having diarrhea. Exam is unremarkable, no abd tenderness noted. Labs today notable for improving hyponatremia, K is 3.5, HbA1c 5.7 Stool PCR is negative CT abd reviewed. Colitis likely related to COVID Continue supportive care. Continue IVF for today Imodium prn diarrhea. GI eval noted. Check BMP, Mg, Phos in AM Other plans as detailed by Kayy Toro PA-C Subjective Seen and examined in 300-1. Feeling less weak today but still having multiple episodes of watery diarrhea. Mild bloating and discomfort in lower abdomen. Ambulating around the room without issue. Denies any fever, chills, lightheadedness, chest pain, palpitations, N/V or urinary symptoms. Review of Systems Review of Systems: At least ten systems reviewed and negative except as noted in the HPI. Physical Exam Physical Exam: Gen: WD/WN, NAD, sitting in bedside chair, A&Ox3 HEENT: Normocephalic, atraumatic, conjunctivae moist, sclerae anicteric, mucous membranes moist Lung: Clear to Auscultation bilaterally, no wheezes/rales/rhonchi Heart: Regular rate, regular rhythm, no murmurs, rubs, or gallops Abdomen: Soft, mild TTP lowed abdomen, ND, no guarding, +BS x 4 Extremities: no edema Skin: Warm, no rash Results & Data Results & Data ([facility]) Vital Signs (Past 12 Hours) Vital Signs Temp Pulse Resp BP Pulse Ox O2 Del Method 04/27/22 07:13 36.6 C 71 18 129/80 96 Room Air 04/27/22 06:01 36.7 C 74 16 114/72 92 Room Air Laboratory Results Short CBC 04/26/22 04/27/22 Range/Units 13:40 07:02 WBC 6.92 4.87 (4.8-10.8) K/ul Hgb 13.6 12.4 (12.0-16.0) g/dl Hct 39.6 35.7 (34.1-44.9) % Plt Count 248 189 (130-400) K/uL BMP 04/26/22 04/26/22 04/27/22 13:40 21:32 07:02 Sodium 128 L 130 L 133 L Potassium 3.4 L 3.3 L 3.5 Chloride 87 L 93 L 98 Carbon Dioxide 35 H 31 31 BUN 13 10 9 Creatinine 0.71 0.59 L 0.58 L Glucose 95 94 91 Calcium 10.0 9.3 9.1 Cardiac Enzymes 04/26/22 Range/Units 13:40 Total Creatine Kinase 39 (26-192) U/L Liver Function 04/26/22 Range/Units 13:40 Total Bilirubin 0.9 (0.2-1.0) mg/dl AST 34 (13-39) U/L ALT 47 (7-52) U/L Alkaline Phosphatase 66 (34-104) U/L Albumin 4.3 (3.4-5.0) gm/dl Urine 04/26/22 Range/Units 21:30 Urine Color Yellow Urine Appearance Clear (Clear) Urine pH 6.0 (4.5-7.5) Ur Specific Telephone 1.022 (1.000-1.030) Urine Protein Negative (Negative) Urine Glucose (UA) Negative (Negative) Diagnostic Findings Abdomen/Pelvis CT 04/26/22 15:[address] WITH IV CONTRAST CT DOSE: 463.29 mGy.cm HISTORY: n/v/d, R abd pain, covid TECHNIQUE: Multiaxial CT images of the abdomen and pelvis were performed following the use of intravenous contrast. A dose lowering technique was utilized adhering to the principles of ALARA. COMPARISON STUDY: None. FINDINGS: The lung bases are clear. No pneumoperitoneum. No pneumatosis. No fractures within the visualized osseous structures. Cholecystectomy. There are few subcentimeter hypodense lesions within the liver. These are technically too small to characterize but statistically represent cysts. The main portal vein is patent. Multiple punctate calcified granulomas noted within the liver and spleen. The pancreas, adrenal glands, and kidneys are unremarkable. No hydronephrosis. The main portal vein is patent. No retroperitoneal lymphadenopathy. Mild calcified plaque within the normal caliber abdominal aorta. The bladder is not well-distended. The uterus and left ovary are unremarkable. There is a 1.5 cm right ovarian cyst. Colonic diverticulosis. No evidence for acute diverticulitis. No evidence for bowel obstruction. Normal appendix. Questionable mild thickening of the majority of the colon most pronounced within the ascending colon. This suggests a low-grade colitis. IMPRESSION: 1. Probable low-grade colitis. 2. Normal appendix. 3. No evidence for bowel obstruction. ACT 112: Negative or not required by law. Electronically signed by: Bowen Vallejo M.D. 04/26/2022 3:47 PM
[2022-04-27] MEDS ORDERED: LOPERAMIDE HCL 2 MG CAP PO PRN (11:13)
--- NOTE | 2022-04-27 12:47 | Gastrointestinal Consultation ---
Date of Consultation April 27, 2022 Assessment & Plan (1) Colitis: Most likely a viral colitis caused by COVID. Plan Appreciate primary hospitalists management of fluid/electrolyte replacement. Because stools are (-) for C-diff and other pathogens, would go forward with Imodium one tab up to 4x/day as needed. If not effective, could try Cholestryamine. Clear liquid diet. Advance as tolerate. OP Colonoscopy in 2-4 months. Pt agrees. Our office will call to arrange. GI will sign off. Please notify us if does not respond to antidiarrheals or if new/worse GI issues. Supervising Physician Co-Signing Physician Notes Recent covid treated with paxlovid, admitted with n/v/loose stools Imaging suggestive of colitis. Stool studies negative PE as above Agree with further plan of care as documented above. History of Present Illness Reason for Consultation: Colitis Requesting Physician: Carmen Mejia PA-C Attending Physician: Denia De Luna MD History of Present Illness Ms. Neha Banerjee is a 77 yr old male pt of Dr. Galvez w a hx of HTN, dyslipidemia, prediabetes, PREETI, depression, celiac disease who was dx'ed w COVID on 04/16/22, has not had typical respiratory symptoms but had N/V which has resolved and has also had diarrhea, up to 10x/day since see was dx'ed w COVID. Presented to the ED yesterday for the diarrhea and weakness. Stool studies are (-) for C-diff and culture. She is awake, alert, oriented, hemodynamically stable and hypokalemia/hyponatremia are improving. She denies every having any significant abdominal pain or GI bleeding. CT on arrival consistent with mild bazzi colitis. She carries a hx of Celiac but her diarrhea began at the time of COVID. Most recent colonoscopy was 2019 w multiple diminutive polyps. Allergies Allergy/AdvReac Type Severity Reaction Status Date / Time bee venom protein (honey bee) Allergy Severe ANAPHALAXIS Verified 04/26/22 17:19 Penicillins Allergy Intermediate HIVES Verified 04/26/22 17:19 adhesive Allergy Mild SKIN Verified 04/26/22 17:19 IRRITATION codeine AdvReac Intermediate FAINTING Verified 04/26/22 17:19 Home Medications Medication Instructions Recorded Confirmed Type aspirin 81 mg tablet,delayed 81 mg PO DAILY 04/16/22 04/26/22 History release atenolol 25 mg tablet 25 mg PO DAILY 04/16/22 04/26/22 History calcium carbonate 500 mg-vitamin 1 tab PO DAILY 04/16/22 04/26/22 History D3 15 mcg (600 unit) tablet (Os-Rajinder 500 + D3) epinephrine 0.3 mg/0.3 mL 0.3 mg IM DIRECTED PRN Allergic 04/16/22 04/26/22 History injection, auto-injector Reaction lisinopril 20 1 tab PO DAILY 04/16/22 04/26/22 History mg-hydrochlorothiazide 25 mg tablet metformin 500 mg tablet,extended 500 mg PO BID 04/16/22 04/26/22 History release 24 hr multivitamin 1 tab PO DAILY 04/16/22 04/26/22 History ropinirole 1 mg tablet 1 mg PO HS 04/16/22 04/26/22 History simvastatin 10 mg tablet 10 mg PO HS 04/16/22 04/26/22 History trazodone 100 mg tablet 50 mg PO HS 04/16/22 04/26/22 History vit C 250 mg-vit E 90 mg-zinc 40 1 tab PO BID 04/16/22 04/26/22 History mg-copper 1 ap-vpykch-gjaonl capsule (PreserVision AREDS-2) ondansetron HCl 4 mg tablet 4 mg PO UD PRN Nausea 04/26/22 04/26/22 History promethazine 25 mg rectal 25 mg PA UD PRN Nausea 04/26/22 04/26/22 History suppository Patient History Medical History (Updated 04/26/22 @ 19:30 by Carmen Mejia PA-C) Celiac disease DM2 (diabetes mellitus, type 2) Dyslipidemia PREETI (obstructive sleep apnea) Restless leg syndrome Surgical History (Updated 04/26/22 @ 19:14 by Carmen Mejia PA-C) History of breast biopsy History of colonoscopy Family History (Updated 04/26/22 @ 19:15 by Carmen Mejia PA-C) Mother Lung cancer Father Coronary heart disease Sister Multiple sclerosis Social History (Updated 04/26/22 @ 19:15 by Carmen Mejia PA-C) Smoking Status: Never smoker Hx Alcohol Use: Yes Alcohol type: beer Hx Substance Use: No Preferred Language: Albanian Communication Ability: Effective President Financial Institution Required: Yes Beliefs That Will Affect Care: None Current Living Situation: Spouse Feels Safe at Home: Yes Safety Concerns: Feels Safe At This Time Assistive Devices: None Review of Systems Review of Systems: ROS: Gen: + weakness/improving, No fevers, weight loss Eyes: No eye redness, or pain, no recent vision changes Resp: No SOB, no cough Cardio: No palpitations/irregular beats, no chest pain GI: As per HPI, otherwise (-) : Denies pain on urination Skin: No jaundice, itching or new rashes Physical Exam Constitutional: WD/WN, vitals as above Eyes: PERRL, conjunctivae normal, anicteric sclerae ENMT: external ear and nose normal, oropharynx normal Neck: trachea midline, no thyromegaly Respiratory: normal respiratory effort, lungs clear to auscultation Cardiovascular: RRR, no murmur, no edema Gastrointestinal (Abdomen): normal bowel sounds, soft, nontender, no hepatosplenomegaly Musculoskeletal: no cyanosis or clubbing, extremities motor strength 5/5 Skin: no rashes, warm and dry Neurologic: PERRL, EOMI, accommodation nl, no face palsy, no dysarthria Psychiatric: A+Ox3, euthymic affect Lymphatic: no cervical or axillary lymphadenopathy Results & Data ([facility]) Vital Signs (Past 12 Hours) Vital Signs Temp Pulse Resp BP Pulse Ox O2 Del Method 04/27/22 07:13 36.6 C 71 18 129/80 96 Room Air 04/27/22 06:01 36.7 C 74 16 114/72 92 Room Air Laboratory Results WBC 4.87, Hb 12, Hct 35, Plts 189, Na 133, K 3.5, Cl 98, Co2 31, BUN 9, Cr 0.58, glucose 91 Diagnostic Findings CTAP w IV on 04/26/22: 1. Probable low-grade colitis. 2. Normal appendix. 3. No evidence for bowel obstruction.
[2022-04-27] MEDS ORDERED: NORMOSOL-R 1,000 ML IV SCH (15:15)
[2022-04-27] MEDS: ENOXAPARIN INJ 40 MG/0.4 ML SYR SQ SCH (19:52)
[2022-04-27] MEDS: traZODone HCL 50 MG TAB PO SCH (19:53)
[2022-04-27] MEDS: SIMVASTATIN 10 MG TAB PO SCH (19:53)
[2022-04-27] MEDS ORDERED: rOPINIRole HCL 1 MG TABLET PO SCH (21:00)
[2022-04-28] MEDS: ASPIRIN 81 MG ECTAB PO SCH (08:43)
[2022-04-28] MEDS: ATENOLOL 25 MG TABLET PO SCH (08:43)
[2022-04-28] MEDS: INSULIN ASPART PER UNIT SC SCH ×2 (09:29→13:27)
[2022-04-28 10:06] LABS: BUN Creatinine Ratio 16.4 (10-20); Creatinine Clr Calc Pharmacy 84.7 ml/min; Est GFR (African American) 104.1 ml/min; Est GFR (Non-African American) 89.8 ml/min; Phosphorus 2.5 mg/dl (2.5-4.9); Potassium 3.5 mmol/L (3.5-5.1)
--- NOTE | 2022-04-28 12:22 | Discharge Summary ---
Date of Service April 28, 2022 Admission HPI Per Admitting Provider Patient is 77-year-old female with PMH HTN, dyslipidemia, prediabetes, PREETI, depression, celiac disease presented to ER with complaint of generalized weakness x 1.5 weeks. Was seen at [facility] ER on 04/16/2022 for weakness, headache nausea, vomiting, diarrhea x1 day and had Positive COVID-19 test. Chest x-ray was without acute process, no hypoxia and was discharged home on Paxlovid. Headache resolved. Patient states was having nausea and multiple episodes of vomiting daily. Been taking phenergen suppositories and zofran. Reports 1-2 episodes of emesis yesterday. Patient states none today and did not have to t carito antiemetics. Initially was having numerous episodes of loose diarrhea daily. Yesterday had 3-4 episodes diarrhea.On the day of presentation, she had 2 episodes of hard marbles. Trying to drink Pedialyte, however states has not been eating and has not been drinking very much fluids. No abdominal pain until abdomen exam in ER. She is still feeling very "wiped out" and has generalized weakness. Denies any falls. Patient denies shortness of breath, cough, congestion, rhinorrhea, sore throat. Denies fever, chills, diaphoresis, hematemesis, hematochezia, melena dizziness, syncope, vision changes, neck pain, CP, palpitations, choking, otalgia, paresthesias, extremity edema, rashes, urinary symptoms. Reports had 2 COVID-19 vaccines and 1 booster, last was in 03/2021. Admission Exam Per Admitting Provider General: no acute distress, WDWN Head: normocephalic, atraumatic Eyes: conjunctiva non-injected, anicteric ENT: normal inspection external ears, nose, mucous membranes dry Neck: supple, trachea midline Lungs: clear, no respiratory distress, no wheezing/rhonchi/rales CV: RRR, no murmur, no pretibial edema Abd: normal BS, soft, slight tenderness to palpation RLQ Ext: no cyanosis, no calf tenderness Neuro: A&O x 3, no focal deficits noted, normal affect Skin: warm, dry Principal Diagnosis viral colitis 2/2 covid infection, hyponatremia Discharge Exam Gen: WD/WN, NAD, sitting in bedside chair, A&Ox3 HEENT: Normocephalic, atraumatic, conjunctivae moist, sclerae anicteric, mucous membranes moist Lung: Clear to Auscultation bilaterally, no wheezes/rales/rhonchi Heart: Regular rate, regular rhythm, no murmurs, rubs, or gallops Abdomen: Soft, mild TTP lowed abdomen, ND, no guarding, +BS x 4 Extremities: no edema Skin: Warm, no rash Discharge Data Allergies Allergy/AdvReac Type Severity Reaction Status Date / Time bee venom protein (honey bee) Allergy Severe ANAPHALAXIS Verified 04/26/22 17:19 Penicillins Allergy Intermediate HIVES Verified 04/26/22 17:19 adhesive Allergy Mild SKIN Verified 04/26/22 17:19 IRRITATION codeine AdvReac Intermediate FAINTING Verified 04/26/22 17:19 Consultations 04/26/22 16:49 ED Decision to Admit Stat 04/27/22 08:00 Consult Gastroenterology Routine Ordered Studies 04/26/22 15:02 CT abd pelvis IV con only Stat Hospital Course (1) Weakness: (2) COVID-19: (3) Nausea vomiting and diarrhea: (4) Colitis: (5) Hyponatremia: (6) Hypokalemia: (7) HTN (hypertension): (8) DM2 (diabetes mellitus, type 2): (9) Dyslipidemia: (10) Restless leg syndrome: (11) PREETI (obstructive sleep apnea): (12) Celiac disease: Plan Patient is 77-year-old female with PMH HTN, dyslipidemia, prediabetes, PREETI, depression, celiac disease presented to ER with complaint of generalized weakness x 1.5 weeks. [facility] ER on 04/16/2022 for weakness, headache, N/V/D and + nausea, COVID-19, CXR: no infiltrate, not hypoxic and was discharged home on Paxlovid. CT ABD/PELVIS: Probable low-grade colitis. Normal appendix. No evidence for bowel obstruction. Work up for colitis with negative stool culture and C. difficile studies. PRN Imodium was started and diarrhea has not recurred since yesterday. Evaluated by GI service and thought to have viral colitis 2/2 covid. Outpatient colonoscopy in 2-4 months to be scheduled by GI. Continue with as needed Imodium up to 4x/day. Initial hyponatremia likely secondary to GI losses, poor oral intake and has resolved during admission. Comfortable and asymptomatic at time of discharge. Total Time Total Time Spent Total Time Spent (In Minutes): 40 Total Time Includes: Examination of the Patient, Discharge Planning and Medication Reconciliation Discharge Plan Discharge Items Patient Disposition: Home - Self-Care Reason For Visit: HYPONATREMIA Discharge Diagnosis: viral colitis 2/2 covid infection Activity: Resume your previous activity Non-emergency contact: Primary Care Provider Call non-emergency contact if: you have any medication questions, your symptoms worsen, your pain is not controlled and your pain is concerning for you Follow-up/Referrals: Zakia Galvez, [Primary Care Provider] - 05/05/22 7:20 am (Date & Time 05/05/2022 7:20 AM Provider Juan C Main PA-C Department General Internal Medicine [facility] ) Dietitian Info: clear liquids, advance as tolerated Diet: Clear liquid Addtl Attending Provider Instructions: You were admitted for diarrhea and weakness in setting of recent covid 19 infection. Symptoms have improved with IV fluids and as needed Imodium, Stool culture and c diff are negative Per GI provider, likely viral colitis secondary to covid Outpatient colonoscopy in 2-4 months, which they will call to arrange for you. Continue with as needed Imodium up to 4x/day. RECOMMENDATIONS FOR FOLLOW-UP: Please follow up with PCP as above OTHER INSTRUCTIONS: Seek medical attention if you have: * temperature above 101 * chest pain or trouble breathing * abdominal pain, nausea, vomiting * diarrhea, dark stools or bloody stools * any unanswered questions or concerns Call 911 if symptoms are severe. Please take good care of yourself. Call if you have any questions or problems. You can reach a [facility] hospitalist on duty at [facility] 24 hours a day by calling [phone]. Pending Studies at Discharge: No Stand-Alone Forms: My [facility] [email or web address], Smoking Cessation Medications and DC Order Prescriptions: New loperamide 2 mg Capsule 2 mg PO QID PRN (Reason: loose stool) Qty: 8 0RF Rx Instructions: Take up to 4x/day as needed for diarrhea Continued multivitamin Tablet 1 tab PO DAILY ropinirole 1 mg tablet 1 mg PO HS simvastatin 10 mg tablet 10 mg PO HS atenolol 25 mg tablet 25 mg PO DAILY aspirin 81 mg Tablet,Delayed Release (Dr/Ec) 81 mg PO DAILY trazodone 100 mg tablet 50 mg PO HS lisinopril-hydrochlorothiazide 20-25 mg tablet 1 tab PO DAILY epinephrine 0.3 mg/0.3 mL auto-injector 0.3 mg IM DIRECTED PRN (Reason: Allergic Reaction) metformin 500 mg tablet extended release 24 hr 500 mg PO BID calcium carbonate-vitamin D3 [Os-Rajinder 500 + D3] 500 mg-15 mcg (600 unit) Tablet 1 tab PO DAILY PreserVision AREDS-2 250-90-40-1 mg Capsule 1 tab PO BID promethazine 25 mg suppository 25 mg ME UD PRN (Reason: Nausea) ondansetron HCl 4 mg tablet 4 mg PO UD PRN (Reason: Nausea) Discharge Orders: Discharge Order (Routine); Ordered 04/28/22 Ordered By: Kayy Holly/Other Patient Handouts: Diabetes Inspect Feet Admission Data Admit Date/Time: 04/26/22 18:49 Attending Provider: Denia De Luna I. Admit Provider: Rosa Ramos Primary Care Provider: Zakia Galvez Other Providers: Rosa Ramos ; Itzel Walsh ; Kayy Toro Other Interventions: Discharge Summary Assessment (RN) Last Done: 04/28/22 14:09
== END 2022-04-28 14:48 | disposition home or self-care (01) | DRG 178 ==
LOC: ED 11:25 → 3E 18:49 → SUATTDRO 18:49 → 3E 20:23